=== PATIENT | female | born 1980 | race Caucasian/White ===

== ENCOUNTER 2025-08-09 23:58 | Emergency (ER) | payer MEDICAID ==
[~2025-08-09] VITALS: Ht 149.9 cm; Wt 63.5 kg
[2025-08-10 01:23] VITALS: BP 122/82
[2025-08-10 03:05] VITALS: BP 120/74; O2SAT 96
== END 2025-08-10 03:06 | disposition home or self-care (01) ==
LOC: ER 08-10 00:22
DX: M25.572 Pain in left ankle and joints of left foot (principal); R22.42 Localized swelling, mass and lump, left lower limb
CPT/HCPCS: 73610; 73630; A4606; A4663